=== PATIENT | female | born 1995 | race Caucasian/White ===

== ENCOUNTER 2016-12-25 08:17 | Emergency (ER) | payer OTHER ==
[~2016-12-25] VITALS: Ht 162.6 cm; Wt 113.0 kg
[2016-12-25] MEDS ORDERED: ACETAMINOPHEN 325 MG TABLET ONE (08:44)
[2016-12-25] MEDS ORDERED: IBUPROFEN 800 MG TABLET ONE (08:44)
[2016-12-25 09:16] LABS: INFLUENZA TYPE B NEGATIVE FOR TYPE B (NEGATIVE)
[2016-12-25] MEDS ORDERED: OSELTAMIVIR PHOSPHATE 75 MG CAPSULE PO ONE (09:30)
[2016-12-25 11:18] VITALS: BP 146/87
== END 2016-12-25 11:20 | disposition home or self-care (01) ==
LOC: EMS 08:18
DX: J09.X2 Influenza due to identified novel influenza A virus with other respiratory manifestations (principal); R51 Headache; J34.89 Other specified disorders of nose and nasal sinuses; R10.9 Unspecified abdominal pain; R19.7 Diarrhea, unspecified
CPT/HCPCS: 87804; 99284

== ENCOUNTER 2019-03-17 03:29 | Emergency (ER) | payer OTHER ==
[~2019-03-17] VITALS: Ht 162.6 cm; Wt 124.1 kg
[2019-03-17] MEDS ORDERED: FERR134T2 PO (03:48)
[2019-03-17 04:15] LABS: APPEARANCE,URINE CLOUDY (CLEAR); BILIRUBIN,URINE NEGATIVE (NEGATIVE); GLUCOSE, URINE (UA) NEGATIVE (NEGATIVE); KETONES,URINE NEGATIVE (NEGATIVE); LEUKOCYTE ESTERASE ,URINE NEGATIVE (NEGATIVE); NITRATE,URINE NEGATIVE (NEGATIVE); OCCULT BLOOD,URINE LARGE (NEGATIVE); PH,URINE 5.5 (5.0-8.0); PROTEIN,URINE NEGATIVE (NEGATIVE); UROBILINOGEN,URINE 0.2 mg/dL (<=1.0)
[2019-03-17 04:20] LABS: RBC,URINE >100 /HPF (0-2)
[2019-03-17 04:21] LABS: BACTERIA,URINE None Seen /HPF (None Seen); SQUAMOUS EPITHELIAL CELL,UR Few /LPF (None Seen)
[2019-03-17 04:40] LABS: BASOPHILS % (AUTO) 0.9 % (0.0-2.0); EOSINOPHILS % (AUTO) 2.6 % (1.0-6.0); HEMATOCRIT 39.4 % (36-46); HEMOGLOBIN 12.6 g/dL (12.0-16.0); LYMPHOCYTES # (AUTO) 2.5 K/uL (1.0-4.8); LYMPHOCYTES % (AUTO) 27.7 % (22.0-44.0); MEAN CORPUSCULAR HEMOGLOBIN 23.7 pg (26.0-34.0); MEAN CORPUSCULAR HGB CONC 32.1 G/dL (31.0-37.0); MEAN CORPUSCULAR VOLUME 74 fL (80-100); MONOCYTES # (AUTO) 0.5 K/uL (0.1-1.0); MONOCYTES % (AUTO) 5.4 % (2.0-9.0); NEUTROPHILS # (AUTO) 5.8 K/uL (1.8-7.7); NEUTROPHILS % (AUTO) 63.4 % (40.0-70.0); PLATELET COUNT (AUTO) 285 K/uL (150-450); RED BLOOD CELL COUNT(AUTO) 5.33 MIL/uL (4.00-5.20); RED CELL DISTRIBUTION WIDTH 16.8 % (11.5-14.5)
[2019-03-17 04:59] LABS: ALANINE AMINOTRANSFERASE 31 U/L (12-78); ALBUMIN 3.7 g/dL (3.4-5.0); ALKALINE PHOSPHATASE 110 U/L (46-116); ANION GAP 6 mmol/L (8-16); ASPARTATE AMINOTRANSFERASE 18 U/L (15-37); BILIRUBIN,TOTAL 0.3 mg/dL (0.1-1.0); CALCIUM, TOTAL 8.8 mg/dL (8.8-10.5); CARBON DIOXIDE 28 mmol/L (22-29); CHLORIDE 105 mmol/L (98-107); CREATININE 0.86 mg/dL (0.60-1.30); GLOMERULAR FILTR. RATE CALC > 60 mL/min (>60); GLUCOSE,RANDOM 98 mg/dL (70-110); HCG,QUANTITATIVE < 1 mIU/mL (0-6); LIPASE 150 U/L (73-393); POTASSIUM 3.7 mmol/L (3.5-5.1); SODIUM SERUM 139 mmol/L (136-145); TOTAL PROTEIN, SERUM 7.8 g/dL (6.4-8.2)
[2019-03-17 05:10] LABS: UREA NITROGEN, BLOOD 22 mg/dL (7-18)
[2019-03-17] MEDS ORDERED: IBUPROFEN 800 MG TABLET PO ONE (05:15)
[2019-03-17] MEDS ORDERED: BENZONATATE 100 MG CAPSULE PO ONE (06:00)
[2019-03-17 06:07] VITALS: BP 133/76
== END 2019-03-17 06:18 | disposition home or self-care (01) ==
LOC: EMS 03:29
DX: S39.011A Strain of muscle, fascia and tendon of abdomen, initial encounter (principal); X58.XXXA Exposure to other specified factors, initial encounter; Y93.89 Activity, other specified; Y92.89 Other specified places as the place of occurrence of the external cause; Y99.8 Other external cause status
CPT/HCPCS: 76705

== ENCOUNTER 2023-08-27 16:22 | Emergency (ER) | payer SELFPAY ==
[~2023-08-27] VITALS: Ht 165.1 cm; Wt 65.5 kg
[~2023-08-27 16:22] MED LIST: FERR134T2 PO
[2023-08-27 16:24] VITALS: TEMP 98.3
[2023-08-27 17:21] LABS: BASOPHILS % (AUTO) 0.5 % (0.0-2.0); EOSINOPHILS % (AUTO) 1.8 % (1.0-6.0); HEMATOCRIT 30.2 % (36-46); HEMOGLOBIN 9.8 g/dL (12.0-16.0); MEAN CORPUSCULAR HEMOGLOBIN 23.9 pg (26.0-34.0); MEAN CORPUSCULAR HGB CONC 32.4 G/dL (31.0-37.0); MEAN CORPUSCULAR VOLUME 74 fL (80-100); MONOCYTES # (AUTO) 0.6 K/uL (0.1-1.0); MONOCYTES % (AUTO) 8.6 % (2.0-9.0); NEUTROPHILS # (AUTO) 3.9 K/uL (1.8-7.7); NEUTROPHILS % (AUTO) 59.1 % (40.0-70.0); PLATELET COUNT (AUTO) 257 K/uL (150-450); RED BLOOD CELL COUNT(AUTO) 4.09 MIL/uL (4.00-5.20); RED CELL DISTRIBUTION WIDTH 17.1 % (11.5-14.5); WHITE BLOOD COUNT (AUTO) 6.6 K/uL (4.5-11.0)
[2023-08-27 17:29] LABS: CALCIUM, TOTAL 8.5 mg/dL (8.8-10.5); POTASSIUM 4.3 mmol/L (3.5-5.1); UREA NITROGEN, BLOOD 18 mg/dL (7-18)
[2023-08-27 17:35] LABS: PLATELET MORPHOLOGY COMMENT LARGE PLTS PRESENT; RBC MORPHOLOGY COMMENT ABNORMAL RBC MORPH
[2023-08-27 17:47] LABS: ALANINE AMINOTRANSFERASE 13 U/L (12-78); ALBUMIN 3.4 g/dL (3.4-5.0); ALKALINE PHOSPHATASE 70 U/L (46-116); ASPARTATE AMINOTRANSFERASE 14 U/L (15-37); BILIRUBIN,TOTAL 0.4 mg/dL (0.1-1.0); HCG,QUANTITATIVE < 1 mIU/mL (0-6); LIPASE 55 U/L (16-77); TOTAL PROTEIN, SERUM 6.7 g/dL (6.4-8.2)
[2023-08-27 17:52] LABS: ANION GAP 6 mmol/L (8-16); CARBON DIOXIDE 27 mmol/L (22-29); CHLORIDE 106 mmol/L (98-107); CREATININE 0.57 mg/dL (0.60-1.30); GLOMERULAR FILTR. RATE CALC > 60 mL/min (>60); GLUCOSE,RANDOM 81 mg/dL (70-110); SODIUM SERUM 139 mmol/L (136-145)
[2023-08-27 18:06] LABS: APPEARANCE,URINE HAZY (CLEAR); BILIRUBIN,URINE NEGATIVE (NEGATIVE); COLOR,URINE YELLOW (YELLOW); GLUCOSE, URINE (UA) NEGATIVE (NEGATIVE); KETONES,URINE NEGATIVE (NEGATIVE); LEUKOCYTE ESTERASE ,URINE TRACE (NEGATIVE); NITRATE,URINE NEGATIVE (NEGATIVE); OCCULT BLOOD,URINE NEGATIVE (NEGATIVE); PH,URINE 5.5 (5.0-8.0); PROTEIN,URINE TRACE mg/dL (NEGATIVE); SPECIFIC GRAVITIY, URINE 1.033 (1.003-1.030); UROBILINOGEN,URINE <=1.0 mg/dL (<=1.0)
[2023-08-27 18:12] LABS: BACTERIA,URINE None Seen /HPF (None Seen); RBC,URINE None Seen /HPF (0-2); WBC,URINE 0-2 /HPF (0-5); YEAST,URINE Moderate /HPF (None Seen)
[2023-08-27] MEDS ORDERED: KETOROLAC TROMETHAMINE 30 MG/ML VIAL IVP ONE (20:30)
[2023-08-27] MEDS ORDERED: KETOROLAC TROMETHAMINE 30 MG/ML VIAL IM ONE (20:45)
[2023-08-27 21:51] VITALS: BP 123/62; PULSE 69; RESP 16
== END 2023-08-27 22:56 | disposition home or self-care (01) ==
LOC: EMS 16:22
DX: N83.202 Unspecified ovarian cyst, left side (principal); F12.90 Cannabis use, unspecified, uncomplicated; Z98.890 Other specified postprocedural states
CPT/HCPCS: 80053; 81001; 83690; 84702; 85025; 36415; 76856; 99285; 96372; J1885